=== PATIENT | female | born 1955 | race Caucasian/White ===

== ENCOUNTER → 2018-05-09 07:01 | Outpatient (CLI) | payer OTHER, SELFPAY ==
[2018-05-09 07:45] LABS: Appearance Urine UA CLEAR; Bilirubin Urine UA NEGATIVE (NEGATIVE); Color Urine UA YELLOW; Glucose Urine UA NEGATIVE (Normal); Ketones Urine UA NEGATIVE (NEGATIVE); Leukocyte Esterase Urine UA NEGATIVE (NEGATIVE); Nitrite Urine UA NEGATIVE (Negative); Occult Blood Urine UA TRACE-INTACT (Negative); Protein Urine UA NEGATIVE (Negative); Specific Gravity Urine UA 1.015 (1.000-1.035); Urobilinogen Urine UA 0.2 E.U./dL (0.2)
[2018-05-09 08:17] LABS: Add Manual Diff / Slide Review NO; Basophils Percent Auto 0.8 % (0-2); Eosinophils Percent Auto 3.6 % (2-4); Hematocrit 38.7 % (36-46); Hemoglobin 13.1 g/dL (12.0-16.0); Lymphocytes Percent Auto 48.1 % (25-40); Mean Corpuscular HGB Conc 33.8 % (30-36); Mean Corpuscular Hemoglobin 30.5 PG (26-34); Mean Corpuscular Volume 90.1 fL (80-100); Monocytes Percent Auto 6.4 % (3-14); Neutrophils Absolute Auto 2600 /uL (3000-5900); Neutrophils Percent Auto 41.1 % (50-75); Platelet Count 303 X10^3/uL (150-400); Red Blood Cell Count 4.29 X10^6/uL (4.0-5.2); White Blood Cell Count 6.3 X10^3/uL (4.5-11.0)
[2018-05-09 08:25] LABS: Alanine Aminotransferase 19 IU/L (9-52); Albumin 4.6 g/dL (3.5-5.0); Albumin Globulin Ratio 1.8 (1.0-2.8); Alkaline Phosphatase 55 U/L (38-126); Aspartate Aminotransferase 24 IU/L (14-36); BUN Creatinine Ratio 16.3 (6-22); Bilirubin Total 0.4 mg/dL (0.2-1.3); Blood Urea Nitrogen 13 mg/dL (7-17); Calcium 9.3 mg/dL (8.4-10.2); Carbon Dioxide 25 mmol/L (22-32); Chloride 102 mmol/L (98-107); Cholesterol 211 mg/dL (140-199); Estimated Glomerular Filt Rate > 60.0 mL/min (>60); Globulin 2.6 g/dL (1.7-4.1); Glucose 88 mg/dL (80-110); HDL Cholesterol 71 mg/dL (40-60); HEMOLYSIS < 15 (0-50); LDL Cholesterol Calculated 125 mg/dL (<100); Potassium 4.6 mmol/L (3.4-5.1); Sodium 139 mmol/L (137-145); Total Protein 7.2 g/dL (6.3-8.2); Triglycerides 75 mg/dL (35-150)
[2018-05-09 09:24] LABS: Free T3, Triiodothyronine Free 2.87 pg/mL (2.77-5.27); Free T4, Direct Thyroxine 1.23 ng/dL (0.78-2.19)
== END ==
PROVIDERS: PCP Family Medicine; Visit Provider Family Medicine
DX: E03.9 Hypothyroidism, unspecified (principal)
CPT/HCPCS: 36415; 80053; 80061; 81003; 84439; 84443; 84481; 85025

== ENCOUNTER → 2018-05-31 08:32 | Outpatient (CLI) | payer OTHER, SELFPAY ==
--- NOTE | 2018-05-31 08:33 | DI.MG.S_ITS ---
BILATERAL DIGITAL SCREENING MAMMOGRAM 3D/2D WITH CAD: 05/31/2018 Comparison is made to exams dated: 03/02/2016 mammogram, 02/10/2016 mammogram, and 01/10/2015 mammogram - [facility]. The tissue of both breasts is heterogeneously dense. This may lower the sensitivity of mammography. Current study was also evaluated with a Computer Aided Detection (CAD) system. No significant masses, calcifications, or other findings are seen in either breast. There has been no significant interval change. IMPRESSION: NEGATIVE There is no mammographic evidence of malignancy. A 1 year screening mammogram is recommended. This exam was interpreted at Station ID: [id number]. NOTE: For mammograms, a report in lay terms will be sent to the patient. Approximately 15% of breast malignancies will not be visualized mammographically. In the management of a palpable breast mass, a negative mammogram must not discourage biopsy of a clinically suspicious lesion. Electronically Signed By: Alanna valle/shereen:06/02/2018 09:58:13 letter sent: Normal Exam ACR BI-RADS Category 1: Negative 3341F
== END ==
PROVIDERS: PCP Family Medicine; Visit Provider Family Medicine
DX: Z12.31 Encounter for screening mammogram for malignant neoplasm of breast (principal)
CPT/HCPCS: 77063; 77067

== ENCOUNTER → 2019-03-27 07:56 | Outpatient (CLI) | payer MEDICARE, SELFPAY ==
[2019-03-27 08:59] LABS: Add Manual Diff / Slide Review NO; Basophils Absolute Auto 100 /uL (0-100); Eosinophils Absolute Auto 200 /uL (0-450); Eosinophils Percent Auto 3.8 % (2-4); Hematocrit 39.6 % (36-46); Hemoglobin 13.2 g/dL (12.0-16.0); Lymphocytes Absolute Auto 3000 /uL (1100-4500); Lymphocytes Percent Auto 45.8 % (25-40); Mean Corpuscular HGB Conc 33.4 % (30-36); Mean Corpuscular Hemoglobin 30.3 PG (26-34); Mean Corpuscular Volume 90.6 fL (80-100); Monocytes Absolute Auto 400 /uL (0-900); Monocytes Percent Auto 6.5 % (3-14); Neutrophils Absolute Auto 2800 /uL (1500-7000); Neutrophils Percent Auto 42.9 % (50-75); Platelet Count 286 X10^3/uL (150-400); Red Blood Cell Count 4.36 X10^6/uL (4.0-5.2); Red Cell Distribution Width 13.7 % (11.6-14.8); White Blood Cell Count 6.5 X10^3/uL (4.5-11.0)
[2019-03-27 09:00] LABS: Appearance Urine UA CLEAR; Bilirubin Urine UA NEGATIVE (NEGATIVE); Color Urine UA YELLOW; Glucose Urine UA NEGATIVE (Negative); Ketones Urine UA NEGATIVE (NEGATIVE); Leukocyte Esterase Urine UA NEGATIVE (NEGATIVE); Nitrite Urine UA NEGATIVE (Negative); Occult Blood Urine UA NEGATIVE (Negative); Protein Urine UA NEGATIVE (Negative); Specific Gravity Urine UA <=1.005 (1.000-1.035); Urobilinogen Urine UA 0.2 E.U./dL (0.2)
[2019-03-27 09:14] LABS: Alanine Aminotransferase 19 IU/L (9-52); Albumin 4.6 g/dL (3.5-5.0); Albumin Globulin Ratio 1.5 (1.0-2.8); Alkaline Phosphatase 57 U/L (38-126); Aspartate Aminotransferase 38 IU/L (14-36); BUN Creatinine Ratio 17.5 (6-22); Bilirubin Total 0.9 mg/dL (0.2-1.3); Blood Urea Nitrogen 14 mg/dL (7-17); Calcium 9.7 mg/dL (8.4-10.2); Carbon Dioxide 28 mmol/L (22-32); Chloride 103 mmol/L (98-107); Cholesterol 226 mg/dL (140-199); Estimated Glomerular Filt Rate > 60.0 mL/min (>60); Glucose 88 mg/dL (80-110); HDL Cholesterol 63 mg/dL (40-60); HEMOLYSIS < 15 (0-50); LDL Cholesterol Calculated 140 mg/dL (<100); Potassium 4.8 mmol/L (3.4-5.1); Sodium 138 mmol/L (137-145); Total Protein 7.6 g/dL (6.3-8.2); Triglycerides 115 mg/dL (35-150)
[2019-03-27 10:26] LABS: Free T3, Triiodothyronine Free 3.45 pg/mL (2.77-5.27); Free T4, Direct Thyroxine 1.27 ng/dL (0.78-2.19)
[2019-03-27 10:40] LABS: Thyroid Stimulating Hormone 1.34 uIU/mL (0.47-4.68)
== END ==
PROVIDERS: PCP Family Medicine; Visit Provider Family Medicine
DX: E03.9 Hypothyroidism, unspecified (principal)
CPT/HCPCS: 36415; 80053; 80061; 81003; 84439; 84443; 84481; 85025

== ENCOUNTER → 2019-06-02 12:23 | Outpatient (CLI) | payer MEDICARE, SELFPAY ==
--- NOTE | 2019-06-02 | DI.MG.S_ITS ---
BILATERAL DIGITAL SCREENING MAMMOGRAM 3D/2D WITH CAD: 06/02/2019 CLINICAL: Routine screening. Comparison is made to exams dated: 05/31/2018 mammogram - [facility], 02/10/2016 mammogram, and 01/10/2015 mammogram - [facility]. The tissue of both breasts is heterogeneously dense. This may lower the sensitivity of mammography. Current study was also evaluated with a Computer Aided Detection (CAD) system. No significant masses, calcifications, or other findings are seen in either breast. There has been no significant interval change. IMPRESSION: NEGATIVE There is no mammographic evidence of malignancy. A 1 year screening mammogram is recommended. This exam was interpreted at Station ID: [id number]. NOTE: For mammograms, a report in lay terms will be sent to the patient. Approximately 15% of breast malignancies will not be visualized mammographically. In the management of a palpable breast mass, a negative mammogram must not discourage biopsy of a clinically suspicious lesion. Electronically Signed By: Alanna valle/shereen:06/02/2019 14:13:03 letter sent: Normal Exam ACR BI-RADS Category 1: Negative 3341F
== END ==
PROVIDERS: PCP Family Medicine; Visit Provider Family Medicine
DX: Z12.31 Encounter for screening mammogram for malignant neoplasm of breast (principal)
CPT/HCPCS: 77063; 77067

== ENCOUNTER → 2019-06-22 07:45 | Outpatient (CLI) | payer MEDICARE, SELFPAY ==
[2019-06-22 09:20] LABS: Cholesterol 218 mg/dL (140-199); HDL Cholesterol 67 mg/dL (40-60); LDL Cholesterol Calculated 134 mg/dL (<100); Triglycerides 86 mg/dL (35-150)
== END ==
PROVIDERS: PCP Family Medicine; Visit Provider Family Medicine
DX: E03.9 Hypothyroidism, unspecified (principal); E78.5 Hyperlipidemia, unspecified
CPT/HCPCS: 36415; 80061

== ENCOUNTER → 2019-06-30 14:49 | Outpatient (CLI) | payer MEDICARE, SELFPAY ==
[2019-06-30 17:30] LABS: Hep C Virus Ab w/Reflex Quant NEGATIVE s/c (NEGATIVE)
== END ==
PROVIDERS: PCP Family Medicine; Visit Provider Family Medicine
DX: Z11.59 Encounter for screening for other viral diseases (principal)
CPT/HCPCS: 36415; 86803

== ENCOUNTER → 2019-07-27 14:32 | Outpatient (CLI) | payer MEDICARE, SELFPAY ==
--- NOTE | 2019-07-27 | DI.US.S_ITS ---
PROCEDURE: US EXTREMITY NONVASC LOWER LT INDICATIONS: LT BUTTOCK SOFT TISSUE MASS TECHNIQUE: Real-time scanning was performed of the left buttock, with image documentation. COMPARISON: None. FINDINGS: Palpable abnormality at the left buttock inferior crease corresponds to an isoechoic lobular focus measuring 5.6 x 1.8 x 6 cm. There is minimal internal vascularity and no surrounding hyperemia. The abnormality is in the subcutaneous tissues and has circumscribed margins. No loculated fluid collection. IMPRESSION: Palpable abnormality at the left buttock likely represents a benign lipoma. However, if the lesion is new or if there is focal pain associated with the mass a MRI is recommended to evaluate for suspicious features. If the lesion grows over time recommend followup ultrasound. Dictated by: Eugene Valerio M.D. on 07/27/2019 at 16:32 Approved by: Eugene Valerio M.D. on 07/27/2019 at 16:35
== END ==
PROVIDERS: PCP Family Medicine; Referring Provider Physician Assistant; Visit Provider Physician Assistant
DX: R22.42 Localized swelling, mass and lump, left lower limb (principal)
CPT/HCPCS: 76882

== ENCOUNTER → 2020-03-12 08:49 | Outpatient (CLI) | payer MEDICARE, SELFPAY ==
[2020-03-13 15:58] LABS: COVID19 Sendout Not Detected (Not Detect)
== END ==
PROVIDERS: PCP Family Medicine; Visit Provider Physician Assistant
DX: Z11.59 Encounter for screening for other viral diseases (principal)
CPT/HCPCS: 87635

== ENCOUNTER 2020-03-15 13:14 | Day surgery (SDC) | payer MEDICARE, SELFPAY ==
[2020-03-15 13:52] VITALS: BP 134/81; PULSE 70; RESP 16; TEMP 37.1; O2SAT 98
[2020-03-15] MEDS: SODIUM CHLORIDE 0.9% 1,000 ML 200 ML IV (13:52)
[2020-03-15 13:55] VITALS: BMI 24.1
--- NOTE | 2020-03-15 14:19 | PM.HP.1 ---
History of Present Illness History of Present Illness Date Patient Seen: 03/15/20 Time Patient Seen: 14:20 Chief complaint: SDC Narrative: This is a 64-year-old woman with history of colonoscopy 14 years ago which she was told was normal, other than having a very redundant colon. She had stool test in 2016 which she was told was normal. She has occasional rectal bleeding which she believes is from hemorrhoids. She denies any unexplained weight loss unexplained abdominal pain or melena. She denies any family history of colon cancer. She says she has some constipation, but does not take a fiber supplement. She says that Metamucil or other fiber supplements make her constipation worse. ROS: Thirteen system review is otherwise negative other than as mentioned below and in HPI. PE: GENERAL: Well groomed and cooperative. Appears stated age. Answers questions promptly and appropriately. Vital signs noted. HENT: Normocephalic, atraumatic. Hearing intact. EYES: Conjunctiva pink, sclera white, no periorbital swelling. CARDIOVASCULAR: Regular rate. No pedal edema. RESPIRATORY: Non-tachypneic, breathing comfortably on room air. GASTROINTESTINAL: Abdomen soft and non-distended GENITALURINARY: No flank tenderness. MUSCULOSKELETAL: Equal tone and mass bilaterally. SKIN: Warm, dry, soft, appropriate color for ethnicity. No other lesions, rashes, or wounds. NEURO: Alert and Oriented X 3. No gross sensory deficits, or cognitive issues. PSYCH: Appropriate affect and mood. Patient History Medical History Chicken pox (Resolved 1963) Dense breast tissue on mammogram (Chronic 01/30/17) Fracture of right wrist (Resolved 2012) Herpes (Resolved 1967) Hypothyroidism (Chronic 2014) Measles (Resolved 1961) Mumps (Resolved 1959) Redundant colon (Acute) Surgical History Anesthesia (Resolved) History of cosmetic surgery (Resolved 2015) History of hysterectomy (Resolved 1994) History of tonsillectomy (Resolved 1960) Status post wrist surgery (Resolved 2012) Family & Social History Family History Father Alcoholism Brother Aortic dissection Sister Obesity Grandmother Heart disease Social History: household members spouse Tobacco & Substance use: Smoking Status Former smoker alcohol intake current alcohol intake frequency holiday/special occasion Substance Use Type does not use Meds Home Medications and Allergies Home Medications Medication Instructions Recorded Confirmed Type levothyroxine 50 mcg capsule 50 mcg PO DAILY #90 cap 04/15/19 03/15/20 Rx conjugated estrogens 0.625 mg/gram 0.625 mg VAG DAILY #30 gram 06/30/19 03/15/20 Rx vaginal cream sodium,potassium,mag sulfates 17.5 177 ml PO DAILY #354 ml 02/24/20 03/15/20 Rx gram-3.13 gram-1.6 gram oral soln valacyclovir 500 mg PO Q12H PRN 03/15/20 03/15/20 History Allergies Allergy/AdvReac Type Severity Reaction Status Date / Time No Known Drug Allergies Allergy Verified 03/15/20 14:01 Exam Vital Signs (past 8 hours): - 03/15/20 13:52 Temperature 98.7 F Pulse Rate 70 Respiratory Rate 16 Blood Pressure 134/81 Pulse Oximetry 98 Oxygen Delivery Method Room Air Assessment & Plan Assessment and plan (1) At average risk for colon cancer: Problem details: Risks and benefits of screening colonoscopy and possible polypectomy were discussed with the patient including risk of bleeding, perforation, need for additional procedures, risks of anesthesia. The patient desires to proceed with the colonoscopy procedure. Status: Acute COVID-19 COVID-19 status: Negative Result date/Date tested (Pos, Neg/Pending): 03/12/20 Time Spent With Patient Time with patient: 15-24 minutes Quality VTE Deep Vein Thrombosis/Pulmonary Embolism Present on Admission: No
--- NOTE | 2020-03-15 14:24 | P.OP.ENDO_ITS ---
Operative Date/Time/Diagnoses Date of procedure: 03/15/20 Time of procedure: 14:24 Pre-op diagnosis: Rectal bleeding, constipation, redundant colon, normal colonoscopy 14 years ago Post-op diagnosis: other (Very redundant colon, no polyps or masses found) Procedure & Clinicians Study performed: Colonoscopy Procedural sedation performed by the endoscopist Same procedure as scheduled: Yes Indications: Rectal bleeding, constipation, redundant colon. Due for screening colonoscopy Surgeon: Michelle Lynch Procedure Notes SCOAP/Timeout: Performed Procedure in detail: The patient was brought to the room and placed in left la teral decubitus position with all bony prominences padded. A time-out was performed and then the patient was given procedural sedation starting with 4 mg of Versed and 100 mcg of fentanyl. A total of 7 mg of Versed and 250 micro g of fentanyl were given for the entire procedure. Vitals were monitored throughout the procedure and remained stable. Once adequately sedated, the procedure was begun. A rectal exam was performed revealing no abnormalities. The colonoscope was then introduced to the rectum and advanced to the cecum in the usual fashion. The colon was very redundant with multiple twists enlarged mucosal folds. Multiple maneuvers were required to reach the cecum safely including using the stiffener, and counter pressure on the abdominal wall. The cecum was identified by the appendiceal orifice, the mucosal tri-fold, and the ileocecal valve. The scope was then retracted while rotating side to side and examining each mucosal fold. At the conclusion of the procedure retroflexion was performed and small grade 1-2 internal hemorrhoids without stigmata of bleeding were seen. The scope was then withdrawn from the rectum the procedure was concluded. The patient tolerated the procedure well and was transferred to the PACU in stable condition. Scope withdrawal time: 8 Sedation minutes: 24 Findings: internal hemorrhoids Specimen(s): none sent Complications: none Impression: No polyps or masses, very tortuous colon with multiple turns and large mucosal folds Post-procedure Recommendations: Colonscopy in 10 years Follow up: as needed Disposition: PACU
[2020-03-15] MEDS: MIDAZOLAM 5 MG/5 ML VIAL IV (14:25)
[2020-03-15] MEDS: fentaNYL 250 MCG/5 ML INJ IV (14:25)
[2020-03-15 15:06] VITALS: BP 111/67; PULSE 75; RESP 19; TEMP 36.4; O2SAT 98
[2020-03-15 15:11] VITALS: BP 107/64; PULSE 73; RESP 18; O2SAT 98
[2020-03-15 15:16] VITALS: BP 111/71; PULSE 67; RESP 13; O2SAT 98
[2020-03-15 15:20] VITALS: BP 114/73; PULSE 81; RESP 12; TEMP 36.5; O2SAT 99
[2020-03-15 15:33] VITALS: BP 109/66; PULSE 63; RESP 14; O2SAT 100
== END 2020-03-15 15:50 | disposition home or self-care (01) ==
PROVIDERS: PCP Physician Assistant; Referring Provider Surgery; Visit Provider Surgery
PROC: 0DJD8ZZ Inspection of Lower Intestinal Tract, Via Natural or Artificial Opening Endoscopic (ICD-10-PCS; CPT 45378; principal; 2020-03-15 14:30)
DX: K62.5 Hemorrhage of anus and rectum (principal); K59.00 Constipation, unspecified; K64.0 First degree hemorrhoids
CPT/HCPCS: 45378; 99152; J2250; J3010

== ENCOUNTER → 2020-06-15 10:53 | Outpatient (CLI) | payer MEDICARE, SELFPAY ==
--- NOTE | 2020-06-15 | DI.MG.S_ITS ---
BILATERAL DIGITAL SCREENING MAMMOGRAM 3D/2D WITH CAD: 06/15/2020 CLINICAL: Routine screening. Comparison is made to exams dated: 06/02/2019 mammogram, 05/31/2018 mammogram - [facility], and 03/02/2016 mammogram - [facility]. The tissue of both breasts is heterogeneously dense. This may lower the sensitivity of mammography. Current study was also evaluated with a Computer Aided Detection (CAD) system. There is a fine punctate calcification in the right breast at 11 o'clock middle depth. There is a calcification in the left breast posterior depth central to the nipple seen on the mediolateral oblique view only. This is increased in number. No other significant masses or calcifications are seen in either breast. IMPRESSION: INCOMPLETE: NEEDS ADDITIONAL IMAGING EVALUATION The fine punctate calcification in the right breast at 11 o'clock middle depth is indeterminate. Additional views with possible ultrasound are recommended. The calcification in the left breast posterior depth central to the nipple seen on the mediolateral oblique view only is indeterminate. Additional views with possible ultrasound are recommended. This exam was interpreted at Station ID: [id number]. NOTE: For mammograms, a report in lay terms will be sent to the patient. Approximately 15% of breast malignancies will not be visualized mammographically. In the management of a palpable breast mass, a negative mammogram must not discourage biopsy of a clinically suspicious lesion. Electronically Signed By: Carissa hinojosa/shereen:06/15/2020 12:55:31 letter sent: Additional Imaging Needed ACR BI-RADS Category 0: Incomplete 3340F
== END ==
PROVIDERS: PCP Physician Assistant; Referring Provider Physician Assistant; Visit Provider Physician Assistant
DX: Z12.31 Encounter for screening mammogram for malignant neoplasm of breast (principal); N63.21 Unspecified lump in the left breast, upper outer quadrant
CPT/HCPCS: 77063; 77067

== ENCOUNTER → 2020-07-11 08:41 | Outpatient (CLI) | payer MEDICARE, SELFPAY ==
--- NOTE | 2020-07-11 | DI.MG.S_ITS ---
BILATERAL DIGITAL DIAGNOSTIC MAMMOGRAM 3D/2D WITH ADDITIONAL VIEWS: 07/11/2020 CLINICAL: Additional evaluation requested from prior study. Comparison is made to exams dated: 06/15/2020 mammogram, 06/02/2019 mammogram, and 05/31/2018 mammogram - [facility]. The tissue of both breasts is heterogeneously dense. This may lower the sensitivity of mammography. Redemonstration of previously described grouped punctate round calcifications in the right breast at 11 o'clock middle depth. These are slightly more prominent but overall not significantly changed compared to 2018. There are grouped punctate round calcifications in the left breast posterior depth central to the nipple seen on the mediolateral oblique view only. These are minimally increased in number which in part may be due to differences in imaging technique. No other significant masses or calcifications are seen in either breast. IMPRESSION: PROBABLY BENIGN The grouped punctate round calcifications in the right breast at 11 o'clock middle depth are probably benign. The grouped punctate round calcifications in the left breast posterior depth central to the nipple seen on the mediolateral oblique view only are probably benign. A follow-up mammogram in 6 months is recommended to demonstrate stability. Findings and recommendations were conveyed to the patient during today's evaluation. This exam was interpreted at Station ID: [id number]. NOTE: For mammograms, a report in lay terms will be sent to the patient. Approximately 15% of breast malignancies will not be visualized mammographically. In the management of a palpable breast mass, a negative mammogram must not discourage biopsy of a clinically suspicious lesion. Electronically Signed By: Eze Montenegro M.D. aty/:07/11/2020 09:19:06 letter sent: Followup Recommended ACR BI-RADS Category 3: Probably benign 3343F
== END ==
PROVIDERS: PCP Physician Assistant; Referring Provider Physician Assistant; Visit Provider Physician Assistant
DX: R92.8 Other abnormal and inconclusive findings on diagnostic imaging of breast (principal); R92.1 Mammographic calcification found on diagnostic imaging of breast
CPT/HCPCS: 77066; G0279

== ENCOUNTER → 2020-12-16 09:25 | Outpatient (CLI) | payer MEDICARE, SELFPAY ==
--- NOTE | 2020-12-16 09:32 | DI.MG.S_ITS ---
BILATERAL DIGITAL DIAGNOSTIC MAMMOGRAM 3D/2D SHORT-TERM FOLLOW-UP: 12/16/2020 CLINICAL: Short term follow up for bilateral breasts. Comparison is made to exams dated: 07/11/2020 mammogram, 06/15/2020 mammogram, 06/02/2019 mammogram, and 05/31/2018 mammogram - [facility]. The tissue of both breasts is heterogeneously dense. This may lower the sensitivity of mammography. There are grouped punctate round calcifications in the right breast at 11 o'clock middle depth. These are not significantly changed. There are grouped punctate round calcifications in the left breast posterior depth central to the nipple seen on the mediolateral oblique view only. These are not significantly changed. No other significant masses or calcifications are seen in either breast. IMPRESSION: PROBABLY BENIGN The grouped punctate round calcifications in the right breast at 11 o'clock middle depth are probably benign. The grouped punctate round calcifications in the left breast posterior depth central to the nipple seen on the mediolateral oblique view only are probably benign. A follow-up mammogram in 6 months is recommended to demonstrate stability. This exam was interpreted at Station ID: [id number]. NOTE: For mammograms, a report in lay terms will be sent to the patient. Approximately 15% of breast malignancies will not be visualized mammographically. In the management of a palpable breast mass, a negative mammogram must not discourage biopsy of a clinically suspicious lesion. Electronically Signed By: Yohan metzger/shereen:12/16/2020 10:16:06 letter sent: Followup Recommended ACR BI-RADS Category 3: Probably benign 3343F
== END ==
PROVIDERS: PCP Physician Assistant; Referring Provider Physician Assistant; Visit Provider Physician Assistant
DX: R92.8 Other abnormal and inconclusive findings on diagnostic imaging of breast (principal); R92.1 Mammographic calcification found on diagnostic imaging of breast
CPT/HCPCS: 77066; G0279

== ENCOUNTER 2021-08-31 08:27 | Emergency (ER) | payer MEDICARE, SELFPAY ==
[2021-08-31 08:41] VITALS: BP 125/71; PULSE 80; RESP 18; TEMP 36.5; O2SAT 99; BMI 25.0
[2021-08-31 08:49] VITALS: PULSE 82; RESP 18; O2SAT 100
--- NOTE | 2021-08-31 08:50 | DI.RAD.S_ITS ---
PROCEDURE: XR CHEST 1V INDICATIONS: chest pain TECHNIQUE: One view of the chest was acquired. COMPARISON: None. FINDINGS: Surgical changes and devices: None. Lungs and pleura: Lungs are clear. No pleural effusions or pneumothorax. Mediastinum: Mediastinal contours appear normal. Heart size is normal. Bones and chest wall: No suspicious bony lesions. Overlying soft tissues appear unremarkable. IMPRESSION: No acute cardiopulmonary process demonstrated radiographically. Dictated by: Panchito Robledo M.D. on 08/31/2021 at 9:38 Approved by: Panchito Robledo M.D. on 08/31/2021 at 9:38
--- NOTE | 2021-08-31 08:54 | ED.CHESTPAIN ---
HPI - Chest Pain General Chief Complaint: Chest Pain Stated Complaint: Left side chest/back pain Time Seen by Provider: 08/31/21 08:53 Source: patient and family Mode of arrival: Ambulatory Limitations: no limitations History of Present Illness HPI narrative: Patient is a 66-year-old female who has past medical history of hypothyroid presents with left-sided back pain radiating to her chest. It has been ongoing for last 2 days. It is pinpoint tenderness it hurts when she moves. Certain positions definitely make it worse. She took some ibuprofen yesterday without much relief. She does not remember any specific activity of what she could have done. Elizabeth worried that it might be her heart. She has no known history of coronary artery disease hypertension or hyperlipidemia. Related Data Home Medications Medication Instructions Recorded Confirmed valacyclovir 500 mg tablet 500 mg PO Q12H PRN 03/15/20 03/15/20 Previous Rx's Medication Instructions Recorded levothyroxine 50 mcg capsule 50 mcg PO DAILY #90 cap 04/15/19 conjugated estrogens 0.625 mg/gram 0.625 mg VAG DAILY #30 gram 06/30/19 vaginal cream (Premarin) sodium,potassium,mag sulfates 17.5 177 ml PO DAILY #354 ml 02/24/20 gram-3.13 gram-1.6 gram oral soln methocarbamol 750 mg tablet 750 mg PO Q8H PRN #14 tab 08/31/21 Allergies Allergy/AdvReac Type Severity Reaction Status Date / Time No Known Drug Allergies Allergy Verified 03/15/20 14:01 Review of Systems Review of Systems Narrative: GENERAL: Denies chills, fatigue, malaise, fever, sweats, travel HEENT: Denies sinus pain, ear pain, sore throat, difficulty swallowing, neck pain RESPIRATORY: Denies dyspnea, cough, wheezing, hemoptysis, sputum. CARDIOVASCULAR: Denies chest pain, palpitations, orthopnea, edema GASTROINTESTINAL: Denies nausea, vomiting, abdominal pain, diarrhea, constipation, melena. : Denies dysuria, frequency, incontinence, hematuria, urinary retention, flank pain. MUSCULOSKELETAL: See HPI SKIN: No rash, no erythema, no pruritus NEUROLOGIC: Denies weakness, dizziness, headache, numbness, change in speech, confusion PSYCHIATRIC: No concerning psychosocial issues. 12 point review of systems is negative except for those stated above and HPI Patient History Medical History Chicken pox (1964) Dense breast tissue on mammogram (01/30/17) Fracture of right wrist (2012) Herpes (1967) Hypothyroidism (2014) Measles (1961) Mumps (1959) Redundant colon Surgical History Anesthesia History of cosmetic surgery (2015) History of hysterectomy (1994) History of tonsillectomy (1960) Status post wrist surgery (2012) Family History Father Alcoholism Brother Aortic dissection Sister Obesity Grandmother Heart disease Social History household members: spouse Smoking Status: Former smoker Tobacco: How many years used: 10 alcohol intake: current Smoking Status: Former smoker alcohol intake frequency: holidays/special occasions only Substance Use Type: does not use Exam Initial Vital Signs Initial Vital Signs: Vital Signs Temperature 97.7 F 08/31/21 08:41 Pulse Rate 80 08/31/21 08:41 Respiratory Rate 18 08/31/21 08:41 Blood Pressure 125/71 08/31/21 08:41 Pulse Oximetry 99 08/31/21 08:41 GENERAL: 66-year-old female appears slightly uncomfortable HEENT: Head atraumatic,EOMI, pupils reactive, face symmetric, moist mucous membranes CARDIOVASCULAR: Regular rate and rhythm without murmurs, rubs or gallops. RESPIRATORY: Breath sounds equal bilaterally, no wheezes rales or rhonchi. ABDOMEN: Soft, nontender. Normoactive bowel sounds all 4 quadrants. No guarding or rebound. BACK: Pain point muscle spasm felt around T4- T5 by the scapula definitely reproducible with pain and palpation. EXTREMITIES: Normal range of motion, no clubbing or edema. Neurovascularly intact NEUROLOGICAL: Alert and oriented x4.Normal gait and speech. SKIN: Warm, dry, no laceration, no petechiae, no rashes or lesions. Course Orders Ordered: Discontinued Medications Diazepam (Diazepam 2 Mg Tablet) 2 mg PO NOW ONE Stop: 08/31/21 09:02 Last Admin: 08/31/21 09:13 Dose: 2 mg Documented by: BRAYDON Ketorolac Tromethamine (Ketorolac 30 Mg/Ml Vial) 30 mg IM NOW ONE Stop: 08/31/21 09:02 Last Admin: 08/31/21 09:13 Dose: 30 mg Documented by: BRAYDON Vital Signs Vital signs: Vital Signs - 8 hr 08/31/21 08:41 08/31/21 08:49 08/31/21 09:00 Temperature 97.7 F Pulse Rate 80 82 77 Respiratory Rate 18 18 17 Blood Pressure 125/71 Pulse Oximetry 99 100 100 08/31/21 09:30 Temperature Pulse Rate 68 Respiratory Rate 13 Blood Pressure Pulse Oximetry 100 MDM - Chest Pain Imaging Data Chest x-ray: Radiologist's Impression: PROCEDURE:? XR CHEST 1V ? INDICATIONS:? chest pain ? TECHNIQUE:? One view of the chest was acquired.? ? COMPARISON:? None. ? FINDINGS:? ? Surgical changes and devices:? None.? ? Lungs and pleura:? Lungs are clear.? No pleural effusions or pneumothorax.? ? Mediastinum:? Mediastinal contours appear normal.? Heart size is normal.? ? Bones and chest wall:? No suspicious bony lesions.? Overlying soft tissues appear unremarkable.? ? IMPRESSION:? No acute cardiopulmonary process demonstrated radiographically. ? ? Dictated by: Panchito Robledo M.D. on 08/31/2021 at 9:38 ?? ECG Data Interpretation: Rhythm rate 74 VA interval 162 QRS 86 07/28/[address] changes no T-wave inversions no priors to compare [facility] Narrative Medical decision making narrative: Patient has been having pain reproducible worse with movement ongoing for last 2 days. This is most likely musculoskeletal. EKG is negative chest x-ray is negative. She is feeling better with Toradol and Valium. EKG and chest x-ray are within normal limits unlikely to be cardiac. Discharge Plan Departure Patient Disposition: Home Clinical Impression: Muscle spasm Instructions: DI for Muscle Spasm Activity Restrictions/Additional Instructions: *You have been diagnosed with muscle spasm *What to do: At this time try heating pad 20-30 minutes and then massaging and stretching. *Continue to take medications as directed Ibuprofen 600 mg every 6 hours if needed for [id number] Tylenol 1000 mg every 6 hours if needed for srlq-[id number] pain Methocarbamol 750 mg every 8 hours if needed for muscle spasm this can cause drowsiness--> SENT TO [facility] [place] *Follow up with your primary care provider in 2-3 days or call [phone] *Return to ER if you should have increasing pain shortness of breath, numbness tingling weakness or any new, worsening or concerning symptoms Prescriptions: New methocarbamol 750 mg tablet 750 mg PO Q8H PRN (Reason: muscle spasm) Qty: 14 0RF No Action levothyroxine 50 mcg capsule 50 mcg PO DAILY Qty: 90 3RF sodium,potassium,mag sulfates 17.5-3.13-1.6 gram recon soln 177 ml PO DAILY Qty: 354 0RF Rx Instructions: Please take medication per [facility] written instructions. Premarin 0.625 mg/gram cream 0.625 mg VAG DAILY Qty: 30 11RF Rx Instructions: off 5 days; repeat cycle valacyclovir 500 mg tablet 500 mg PO Q12H PRN (Reason: Cold Sores) 0RF Label Comments: Months ago Rx Instructions: Take 500mg every 12 hours for 10 days Referrals: Kathryn Evans PA-C [Primary Care Provider] -
[2021-08-31 09:00] VITALS: PULSE 77; RESP 17; O2SAT 100
[2021-08-31] MEDS: KETOROLAC 30 MG/ML VIAL IM (09:13)
[2021-08-31] MEDS: diazePAM 2 MG TABLET PO (09:13)
[2021-08-31 09:30] VITALS: PULSE 68; RESP 13; O2SAT 100
[2021-08-31 10:00] VITALS: PULSE 72; RESP 13; O2SAT 97
[2021-08-31 10:11] VITALS: BP 116/68; PULSE 69; RESP 17; O2SAT 98
== END 2021-08-31 10:11 | disposition home or self-care (01) ==
PROVIDERS: Emergency Provider Emergency Medicine; PCP Physician Assistant
DX: M62.830 Muscle spasm of back (principal); Z87.891 Personal history of nicotine dependence; R07.9 Chest pain, unspecified
CPT/HCPCS: 71045; 93005; 93010; 96372; 99284; J1885

== ENCOUNTER → 2021-09-22 12:52 | Outpatient (CLI) | payer MEDICARE, SELFPAY ==
--- NOTE | 2021-09-22 | DI.CT.S_ITS ---
PROCEDURE: CT ABDOMEN PELVIS W CON INDICATIONS: Left upper quadrant pain TECHNIQUE: After the administration of oral and IV contrast, axial sections were acquired from the lung bases to the pubic symphysis. Coronal and sagittal reformats were performed. For radiation dose reduction, the following was used: automated exposure control, adjustment of mA and/or kV according to patient size. COMPARISON: [facility], CR, XR CHEST 1V, 08/31/2021, 9:12. FINDINGS: Image quality: Excellent. Lung bases: Unremarkable. Heart: No significant findings. ABDOMEN: Liver: Unremarkable. Gallbladder: Unremarkable. Biliary ducts: Unremarkable. Pancreas: Unremarkable. Spleen: Unremarkable. Adrenal Glands: Unremarkable. Kidneys and Ureters: Unremarkable. Stomach and Bowel: In this patient with this given history, scrutiny is given to splenic flexure. No splenic flexure abnormality can be seen. Stomach, small bowel loops, and colon are unremarkable. Peritoneum: No abnormal intraperitoneal fluid. No free air. Ventral Wall: No hernia. Abdominal Nodes: No retroperitoneal or mesenteric adenopathy by size criteria. Vessels: Aorta and inferior vena cava are normal in size. PELVIS: Pelvic Organs: This patient is status post hysterectomy. No adnexal masses are seen. Bladder: Unremarkable. Pelvic Nodes: No enlarged lymph nodes. Miscellaneous: No inguinal hernias are seen. Bones: Unremarkable for age. Mild levoconvex scoliotic curvature is noted. IMPRESSION: No significant abnormality is seen to explain the patient's presenting history of left upper quadrant pain. Dictated by: Tai Denny M.D. on 09/22/2021 at 15:49 Approved by: Tai Denny M.D. on 09/22/2021 at 15:51
== END ==
PROVIDERS: PCP Physician Assistant; Referring Provider Family Medicine; Visit Provider Family Medicine
DX: R10.12 Left upper quadrant pain (principal); Z90.710 Acquired absence of both cervix and uterus
CPT/HCPCS: 74177; Q9967

== ENCOUNTER → 2022-02-05 09:38 | Outpatient (CLI) | payer MEDICARE, SELFPAY ==
--- NOTE | 2022-02-05 09:40 | DI.MG.S_ITS ---
BILATERAL DIGITAL DIAGNOSTIC MAMMOGRAM 3D/2D: 02/05/2022 CLINICAL: Short term follow up bilaterally. Comparison is made to exams dated: 12/16/2020 mammogram, 07/11/2020 mammogram, 06/15/2020 mammogram, 06/02/2019 mammogram, and 05/31/2018 mammogram - [facility]. The tissue of both breasts is heterogeneously dense. This may lower the sensitivity of mammography. There are grouped punctate round calcifications in the right breast at 11 o'clock middle depth. These are not significantly changed. There are grouped punctate round calcifications in the left breast posterior depth central to the nipple seen on the mediolateral oblique view only. These are not significantly changed. No other significant masses or calcifications are seen in either breast. IMPRESSION: PROBABLY BENIGN The grouped punctate round calcifications in the right breast at 11 o'clock middle depth are probably benign. The grouped punctate round calcifications in the left breast posterior depth central to the nipple seen on the mediolateral oblique view only are probably benign. A follow-up mammogram in 6 months is recommended to demonstrate long-term stability. Exam findings were conveyed to the patient. Based on the Tyrer Cuzick model (a risk assessment model) the patient's lifetime risk is 7.2% and her 10 year risk is 3.8%. According to the ACR, ACS, and NCCN guidelines, an annual breast MRI exam along with mammogram is recommended if the patient's lifetime risk is 20% or greater. This exam was interpreted at Station ID: [id number]. NOTE: For mammograms, a report in lay terms will be sent to the patient. Approximately 15% of breast malignancies will not be visualized mammographically. In the management of a palpable breast mass, a negative mammogram must not discourage biopsy of a clinically suspicious lesion. Electronically Signed By: Eugene Valerio M.D. [facility] [place]/:02/05/2022 10:20:44 letter sent: Followup Recommended ACR BI-RADS Category 3: Probably benign [id number]
== END ==
PROVIDERS: PCP Physician Assistant; Visit Provider Physician Assistant
DX: R92.8 Other abnormal and inconclusive findings on diagnostic imaging of breast (principal); R92.1 Mammographic calcification found on diagnostic imaging of breast
CPT/HCPCS: 77066; G0279

== ENCOUNTER → 2022-02-09 11:07 | Outpatient (CLI) | payer MEDICARE, SELFPAY ==
--- NOTE | 2022-02-09 | DI.RAD.S_ITS ---
PROCEDURE: XR CERVICAL SPINE 2V OR 3V INDICATIONS: NECK PAIN TECHNIQUE: 3 view(s) of the cervical spine were acquired. COMPARISON: None. FINDINGS: Bones: No fractures or dislocations to the T1 level. The lateral masses of C1 appear intact on the odontoid view. No suspicious bony lesions. Straightening of the normal cervical lordosis, a finding which can be seen in the setting of muscle strain and/or spasm. 2 millimeters anterolisthesis C3 on C4, 2 millimeters retrolisthesis C5 on C6. Moderate multilevel disc height loss and endplate spurring most pronounced from C5-C7. Mild multilevel facet degenerative changes also present. Soft tissues: No prevertebral soft tissue swelling. IMPRESSION: Moderate multilevel degenerative changes of the cervical spine. Dictated by: Yohan Caldwell M.D. on 02/09/2022 at 21:38 Approved by: Yohan Caldwell M.D. on 02/09/2022 at 21:42
== END ==
PROVIDERS: PCP Physician Assistant; Referring Provider Physician Assistant; Visit Provider Physician Assistant
DX: M54.2 Cervicalgia (principal); M47.812 Spondylosis without myelopathy or radiculopathy, cervical region
CPT/HCPCS: 72040

== ENCOUNTER → 2022-08-21 08:35 | Outpatient (CLI) | payer MEDICARE, SELFPAY ==
--- NOTE | 2022-08-21 | DI.MG.S_ITS ---
BILATERAL DIGITAL DIAGNOSTIC MAMMOGRAM 3D/2D SHORT-TERM FOLLOW-UP: 08/21/2022 CLINICAL: Short term follow up for bilateral breasts. Comparison is made to exams dated: 02/05/2022 mammogram, 12/16/2020 mammogram, 07/11/2020 mammogram, and 06/15/2020 mammogram - [facility]. Both breasts are heterogeneously dense, which may obscure small masses (category c / 51-75% glandular tissue). There are benign grouped punctate round calcifications in the right breast at 11 o'clock middle depth. These are not significantly changed. There are benign grouped punctate round calcifications in the left breast posterior depth central to the nipple seen on the mediolateral oblique view only. These are not significantly changed. No other significant masses or calcifications are seen in either breast. IMPRESSION: BENIGN There is no mammographic evidence of malignancy. Follow-up with ACR/ACS guidelines. Based on the Tyrer Cuzick model (a risk assessment model) the patient's lifetime risk is 6.9% and her 10 year risk is 3.8%. According to the ACR, ACS, and NCCN guidelines, an annual breast MRI exam along with mammogram is recommended if the patient's lifetime risk is 20% or greater. This exam was interpreted at Station ID: [id number]. NOTE: For mammograms, a report in lay terms will be sent to the patient. Approximately 15% of breast malignancies will not be visualized mammographically. In the management of a palpable breast mass, a negative mammogram must not discourage biopsy of a clinically suspicious lesion. Electronically Signed By: Panchito Robledo M.D., jr/shereen:08/21/2022 12:29:06 letter sent: Normal Exam ACR BI-RADS Category 2: Benign Finding(s) 3342F
== END ==
PROVIDERS: PCP Physician Assistant; Referring Provider Physician Assistant; Visit Provider Physician Assistant
DX: R92.8 Other abnormal and inconclusive findings on diagnostic imaging of breast (principal)
CPT/HCPCS: 77066; G0279

== ENCOUNTER → 2023-01-24 09:50 | Outpatient (CLI) | payer MEDICARE, SELFPAY ==
--- NOTE | 2023-01-24 09:54 | DI.RAD.S_ITS ---
PROCEDURE: XR KNEE RT 4V INDICATIONS: KNEE PAIN TECHNIQUE: 5 views of the knee were acquired. COMPARISON: None. FINDINGS: Bones: No acute fractures or dislocations. No suspicious bony lesions. Soft tissues: No joint effusion. No suspicious soft tissue calcifications. IMPRESSION: No acute osseous abnormality. If the symptoms persist, consider cross sectional imaging such as MRI or CT for further assessment. Approved by: Yohan Dias M.D. on 01/24/2023 at 15:29
--- NOTE | 2023-01-24 09:54 | DI.RAD.S_ITS ---
Bone Density Report Name: CUCA MERRILL Age: 67 Sex: Female Ethnicity: White Date of : 1955 Indication: postmenopausal; screening for osteoporosis; Referring Provider: WALTER ROLON Study: Bone densitometry was performed. Exam Date: January 24, 2023 Accession number: [id number] Bone Density: Region BMD T-score Z-score Classification AP Spine(L1, L2, L4) 0.634 -3.6 -1.6 Osteoporosis Femoral Neck (Left) 0.765 -0.8 1.0 Normal Total Hip (Left) 0.725 -1.8 -0.3 Osteopenia Femoral Neck (Right) 0.678 -1.5 0.2 Osteopenia Total Hip (Right) 0.735 -1.7 -0.3 Osteopenia Total Hip Mean 0.730 -1.8 -0.3 Osteopenia World Health Organization criteria for BMD impression classify patients as: Normal (T-score at or above -1.0), Osteopenia (T-score between -1.0 and -2.5), or Osteoporosis (T-score at or below -2.5). 10-year Fracture Risk: FRAX not reported because: Some T-score for Spine Total or Hip Total or Femoral Neck at or below -2.5 Impression: The patient has osteoporosis, based on the Total Spine T-score. Discussion: INCREASED RISK OF FRACTURE. BONE DENSITY IS UNDESIRABLY LOW AT ONE OR MORE SKELETAL SITES, CONSISTENT WITH POSTMENOPAUSAL OSTEOPOROSIS. This patient's lowest T-score meets the World Health Organization's (WHO) criteria for osteoporosis at one or more sites (T-score -2.5 or below). In untreated patients, the risk of osteoporotic fracture increases approximately two-fold for each 1.0 SD decrease in T-score. Low bone density is not the only risk factor for fracture; also consider factors such as patient's age, frailty or poor health, risk of falling, risk of injury, previous osteoporotic fracture, family history of osteoporosis, cigarette smoking, low body weight, etc. Not everyone with low bone mineral density has osteoporosis; osteomalacia and other metabolic bone disorders should also be considered. Patients who have osteoporosis should be evaluated for specific diseases and conditions (secondary causes) that may cause or contribute to bone loss. The [place] [employer]ocr[employer] (AACE) and National Osteoporosis Foundation (NOF) recommend pharmacologic intervention for all postmenopausal women whose T-score is in this range. The patient should follow a healthful lifestyle (good nutrition with adequate calcium and vitamin D, and appropriate weight-bearing exercise). Follow-Up: Consider a repeat BMD and Vertebral Fracture Assessment (VFA) exam in 2 years or sooner if medically necessary, to reassess this patient's status. Reported by: LEIGH NICE M.D. on 01/24/2023 11:58:00 AM.
== END ==
PROVIDERS: PCP Physician Assistant; Referring Provider Physician Assistant; Visit Provider Physician Assistant
DX: M81.0 Age-related osteoporosis without current pathological fracture (principal); M25.561 Pain in right knee; Z13.820 Encounter for screening for osteoporosis; Z78.0 Asymptomatic menopausal state
CPT/HCPCS: 73564; 77080

== ENCOUNTER → 2023-07-11 13:29 | Outpatient (CLI) | payer MEDICARE, SELFPAY ==
--- NOTE | 2023-07-11 13:30 | DI.MRI.S_ITS ---
PROCEDURE: MR KNEE RT WO CON INDICATIONS: RIGHT KNEE INTERNAL DERANGEMENT TECHNIQUE: Noncontrast sagittal PD fast spin echo and T2 fast spin echo with fat saturation, sagittal 3-D FLASH with fat saturation; coronal T1 spin echo and PD fast spin echo with fat saturation, and axial PD fast spin echo with fat saturation through the knee. COMPARISON: None. FINDINGS: Image quality: Excellent. Menisci: subtle signal abnormality involving posterior medial periphery of medial meniscus posterior horn concerning for subtle oblique tear. The lateral meniscus is intact. The meniscal root ligaments are intact. Cruciate ligaments: The anterior and posterior cruciate ligaments appear intact. Medial structures: The medial collateral ligament appears thickened with surrounding soft tissue edema. Visualized portions of the pes anserinus tendons appear normal. No abnormal bursal fluid. Lateral structures: The lateral collateral ligament, long and short heads of the biceps femoris tendon appear mildly thickened. The popliteus tendon is intact. Iliotibial band appears normal. Anterior structures: Distal quadriceps tendinosis at its superior patellar insertion is seen. The patellar tendon is intact. Patellar alignment is normal. No femoral trochlear dysplasia or ventral trochlear prominence. No edema in the infrapatellar fat pad. Bones and cartilage: Subcortical cystic area involving lateral femoral condyle at proximal lateral collateral ligament insertion is noted with adjacent marrow edema. No fracture or dislocation. Mild tricompartmental osteoarthritis and low-grade chondromalacia is seen. Joint space: There is physiologic knee joint fluid. There is a tiny Carney's cyst. Lobulated and septated cystic structure involving proximal portion of medial head of gastrocnemius muscle is noted and measures up to 1.8 x 1.7 x 4.1 cm in size. Normal appearing synovial plicae are incidentally noted. IMPRESSION: 1. Subtle oblique tear involving posterior horn of medial meniscus extending to inferior articulating surface. The lateral meniscus is intact. 2. The cruciate ligaments are intact. 3. Low-grade sprain/intrasubstance partial-thickness tear involving medial collateral ligament. Low-grade partial-thickness tear also seen involving proximal lateral collateral ligament at its femoral insertion . 4. Suggestion of avulsion injury involving lateral femoral condyle at lateral collateral ligament insertion. Mild tricompartmental osteoarthritis and low-grade chondromalacia. No acute fracture or dislocation. 5. Small joint effusion and a tiny Carney's cyst. Possible intramuscular ganglion cyst involving medial head of proximal gastrocnemius muscle as described above. Dictated by: Sandor Azevedo M.D. on 07/11/2023 at 16:11 Approved by: Sandor Azevedo M.D. on 07/11/2023 at 16:21
== END ==
PROVIDERS: PCP Physician Assistant; Referring Provider Orthopaedic Surgery Foot and Ankle Surgery; Visit Provider Orthopaedic Surgery Foot and Ankle Surgery
DX: S83.241A Other tear of medial meniscus, current injury, right knee, initial encounter (principal); S83.411A Sprain of medial collateral ligament of right knee, initial encounter; S83.421A Sprain of lateral collateral ligament of right knee, initial encounter; M17.11 Unilateral primary osteoarthritis, right knee; M94.261 Chondromalacia, right knee; M23.91 Unspecified internal derangement of right knee
CPT/HCPCS: 73721

== ENCOUNTER → 2023-08-22 14:36 | Outpatient (CLI) | payer MEDICARE, SELFPAY ==
--- NOTE | 2023-08-22 | DI.MG.S_ITS ---
BILATERAL DIGITAL SCREENING MAMMOGRAM 3D/2D WITH CAD: 08/22/2023 CLINICAL: Routine screening. Comparison is made to exams dated: 08/21/2022 mammogram, 12/16/2020 mammogram, 02/05/2022 mammogram, 07/11/2020 mammogram, and 06/15/2020 mammogram - [facility]. Both breasts are heterogeneously dense, which may obscure small masses (category c / 51-75% glandular tissue). Current study was also evaluated with a Computer Aided Detection (CAD) system. No significant masses, calcifications, or other findings are seen in either breast. There has been no significant interval change. IMPRESSION: NEGATIVE There is no mammographic evidence of malignancy. A 1 year screening mammogram is recommended. Based on the Tyrer Cuzick model (a risk assessment model) the patient's lifetime risk is 6.5% and her 10 year risk is 3.8%. According to the ACR, ACS, and NCCN guidelines, an annual breast MRI exam along with mammogram is recommended if the patient's lifetime risk is 20% or greater. This exam was interpreted at Station ID: [id number]. NOTE: For mammograms, a report in lay terms will be sent to the patient. Approximately 15% of breast malignancies will not be visualized mammographically. In the management of a palpable breast mass, a negative mammogram must not discourage biopsy of a clinically suspicious lesion. Electronically Signed By: Eugene valencia/shereen:08/22/2023 15:27:53 letter sent: Normal Exam ACR BI-RADS Category 1: Negative 3341F
== END ==
LOC: MAMMO 14:37
PROVIDERS: PCP Physician Assistant; Referring Provider Physician Assistant; Visit Provider Physician Assistant
DX: Z12.31 Encounter for screening mammogram for malignant neoplasm of breast (principal); R92.333 Mammographic heterogeneous density, bilateral breasts
CPT/HCPCS: 77063; 77067

== ENCOUNTER → 2024-03-19 11:15 | Outpatient (CLI) | payer MEDICARE, SELFPAY ==
[2024-03-19 13:05] LABS: BUN Creatinine Ratio 16.7 (6-22); Blood Urea Nitrogen 11 mg/dL (7-17); Carbon Dioxide 27 mmol/L (22-32); Chloride 97 mmol/L (98-107); Estimated Glomerular Filt Rate > 60 mL/min (>60); Glucose 89 mg/dL (80-110); HEMOLYSIS < 15 (0-50); Potassium 4.8 mmol/L (3.4-5.1); Sodium 133 mmol/L (137-145)
== END ==
PROVIDERS: PCP Family Medicine; Referring Provider Family Medicine; Visit Provider Family Medicine
DX: E87.1 Hypo-osmolality and hyponatremia (principal)
CPT/HCPCS: 36415; 80048

== ENCOUNTER → 2024-09-01 13:35 | Outpatient (CLI) | payer MEDICARE, SELFPAY ==
--- NOTE | 2024-09-01 13:37 | DI.RAD.S_ITS ---
PROCEDURE: XR DEXA AXIAL SKELETON INDICATIONS: ROUTINE COMPARISON: [facility], , XR DEXA AXIAL SKELETON, 01/24/2023, 10:09. FINDINGS: Lumbar Spine: Bone mineral density 0.718 (previously 0.634) g/cm2, T score -2.9 (previously-3.6). Left Femoral Neck: Bone mineral density 0.810 (previously 0.765) g/cm2, T score -0.4 (previously-0.8) Left Hip: Bone mineral density 0.790 (previously 0.725) g/cm2, T score -1.2 (previously-1.8). Fracture Risk Calculation (when applicable): 10-year fracture risk of a major osteoporotic fracture 12 percent and of a hip fracture 0.8 percent. (T score greater or equal to -1.0 to: NORMAL) (T score from -1.1 to -2.4: OSTEOPENIA) (T score less than or equal to -2.5: OSTEOPOROSIS) IMPRESSION: Osteoporosis---recommend repeat DEXA in 2 years or less for reassessment of response to treatment. Follow-up guidelines as follows: Osteoporosis: Consider a repeat DEXA and Vertebral Fracture Assessment (VFA) exam in 2 years or sooner if medically necessary, to reassess this patient's status. Osteopenia: Consider a repeat DEXA in 2-3 years to reassess this patient's status, or if there is a new clinical indication. Normal: Consider a repeat DEXA in 5 years or sooner, or if there is a new clinical indication. All treatment decisions require clinical judgment and consideration of individual patient factors, including patient preferences, comorbidities, previous drug use, risk factors not captured in the FRAX model (e.g., frailty, falls, vitamin D deficiency, increased bone turnover, interval significant decline in bone density ) and possible under- or over-estimation of fracture risk by FRAX. In addition, the NOF Guide recommends that FDA-approved medical therapies be considered in postmenopausal women and men age >= 50 years with a: * Hip or vertebral (clinical or morphometric) fracture * T-score of <=-2.5 at the spine or hip * Ten-year fracture probability by FRAX of >= 3% for hip fracture or >=20% for major osteoporotic fracture. Dictated by: Noe Alexander M.D. on 09/02/2024 at 2:47 Approved by: Noe Alexander M.D. on 09/02/2024 at 2:49
--- NOTE | 2024-09-01 13:37 | DI.MG.S_ITS ---
MM screening mammo BI: 09/01/2024. BI-RADS: 1 CLINICAL: 69-year old female for bilateral screening mammogram. Tyrer-Cuzick lifetime risk of 4.3%. No personal or first-degree family history of breast cancer. PRIOR EXAMS 08/22/2023, 08/21/2022, 02/05/2022, 12/16/2020, 07/11/2020, 06/15/2020, 06/02/2019, 05/31/2018. MAMMOGRAPHY TECHNIQUE: 2D and 3D (tomosynthesis) digital mammographic views obtained, with additional images as needed for full coverage. Current study was also evaluated with a Computer Aided Detection (CAD) system. DENSITY C. The breasts are heterogeneously dense, which may obscure small masses. MAMMOGRAPHY FINDINGS Bilateral: No suspicious mass, asymmetry, microcalcification, or other abnormality seen. IMPRESSION: * No evidence of malignancy. RECOMMENDATIONS Bilateral * Annual screening mammography. OVERALL ASSESSMENT CATEGORY BI-RADS-1: Negative. The [employer] recommends annual screening mammography beginning at age 40 for women with average risk of breast cancer. ELECTRONICALLY SIGNED: Argelia Johnson M.D. on 09/04/2024 at 01:46:04 AM PT Interpreting Station ID: [id number]
== END ==
PROVIDERS: PCP Physician Assistant; Referring Provider Physician Assistant; Visit Provider Physician Assistant
DX: Z12.31 Encounter for screening mammogram for malignant neoplasm of breast (principal); M81.0 Age-related osteoporosis without current pathological fracture; E03.9 Hypothyroidism, unspecified; R92.333 Mammographic heterogeneous density, bilateral breasts
CPT/HCPCS: 77063; 77067; 77080